=== PATIENT | female | born 1960 | race Two or more races ===

== ENCOUNTER 2016-06-30 16:10 | Emergency (ER) | payer OTHER ==
--- NOTE | ~2016-06-30 | CR58 ---
[facility]. [facility] A Service of [facility] & [facility] RADIOLOGY TEXT RESULTS PATIENT: BRI CLARK LOCATION: SED : 60 UNIT #: [id number] AGE: [address]: Alok Freitas SEX: F ORDER DR: [id number] [place] [id number] E MR#: [id number] Acc #: [id number] NAME: BRI CLARK : 1960 SEX: F STUDY DATE/TIME: 06/30/2016 16:27 UNIT: SED ROOM: STUDY DESCRIPTION: CR Cervical Spine 2 or 3 Views Attending Physician: Alok Freitas P.A.-C. Ordering Physician: Alok Freitas P.A.-C. Primary Care Physician: [facility] MEDICAL IMAGING REPORT This report is preliminary unless electronic signature is present. EXAM Cervical spine series, 3 views, 06/30/2016 HISTORY Neck pain for 2 weeks radiating to left arm with left arm numbness and tingling paresthesias. FINDINGS There is discogenic change with slight 5-6 retrolisthesis but no fracture, prevertebral swelling or acute abnormality is seen. Dictated by... Kevyn Trammell M.D. THIS IS AN ELECTRONICALLY VERIFIED REPORT Kevyn Trammell M.D. at 07/01/2016 5:04 PM TEV/psc TD: 07/01/2016 00:01 JOB #: [id number] MEDICAL IMAGING REPORT Page 1 of 1
--- NOTE | ~2016-06-30 | CR63 ---
[facility]. [facility] A Service of [facility] & [facility] RADIOLOGY TEXT RESULTS PATIENT: BRI CLARK LOCATION: SED : 60 UNIT #: [id number] AGE: [address]: Alok Freitas SEX: F ORDER DR: [id number] [place] [id number] E MR#: [id number] Acc #: [id number] NAME: BRI CLARK : 1960 SEX: F STUDY DATE/TIME: 06/30/2016 16:27 UNIT: SED ROOM: STUDY DESCRIPTION: CR Chest 2 View Attending Physician: Alok Freitas P.A.-C. Ordering Physician: Alok Freitas P.A.-C. Primary Care Physician: [facility] MEDICAL IMAGING REPORT This report is preliminary unless electronic signature is present. EXAM PA and lateral chest two views, 06/30/2016 CLINICAL HISTORY Left arm pain x2 weeks. FINDINGS There is no infiltrate, effusion, pneumothorax or suspicious nodule and the heart size and pulmonary vascularity are normal. There is mild spinal degenerative change but no acute bony abnormality. Dictated by... Kevyn Trammell M.D. THIS IS AN ELECTRONICALLY VERIFIED REPORT Kevyn Trammell M.D. at 07/01/2016 5:04 PM WILLEM/aleshia TD: 07/01/2016 00:03 JOB #: [id number] MEDICAL IMAGING REPORT Page 1 of 1
--- NOTE | ~2016-06-30 | EKG ---
PATIENT: BRI CLARK UNIT #: [id number] Ventricular Rate: 85 BPM Atrial Rate: 85 BPM P-R Interval: 104 ms QRS Duration: 78 ms Q-T Interval: 342 ms QTC Calculation(Bezet): 406 ms P [place]: 36 degrees Calculated R [place]: -3 degrees Calculated T [place]: 18 degrees Diagnosis Line: Sinus rhythm with short RI Diagnosis Line: Poor R wave progression questionable lead position Diagnosis Line: or body habitus Early repolarization Borderline Diagnosis Line: ECG Diagnosis Line: When compared with ECG of 12-DEC-2015 08:57, Diagnosis Line: No significant change was found Diagnosis Line: Confirmed by YVES AYALA MD ([id number]) on 07/01/2016 Diagnosis Line: 8:04:35 PM INTERPRETING MD: JAMIE SIMTH
[~2016-06-30 16:10] MED LIST: AUGMENTIN875 M1 PO; BACTRIM DS TABL1 TA1 PO; CARAFATE1 GM PO; CLEOCIN HCL300 M1 PO; FLONASE 0.05% N16 G1; HUMALOG100 UNIT/2 SUBQ; HYDROCODON-ACE1 EAC9 PO; IBUPROFEN PO; IBUPROFEN800 MG PO; LANTUS100 U/ML SUBQ; LEVEMIR SUBQ; METFORMIN PO; PREDNISONE PO; PRILOSEC PO; PRINIVIL20 M1 PO; PROTONIX PO; TRAZODONE HCL100 MG PO; TRESIBA FL100 UNIT/1; TRESIBA FL100 UNIT/1 SUBQ; TYLENOL #3 PO; VOLTAREN50 MG PO; ZOFRAN ODT4 MG PO; ZOFRAN ODT4 MG SL; ZOFRANODT PO
[2016-06-30 17:23] LABS: BASOPHIL# 0.1 X10e3 (0-0.3); BASOPHIL% 0.6 % (0-2.5); EOSINOPHIL# 0.1 X10e3 (0-0.7); EOSINOPHIL% 0.7 % (0.0-7.0); HEMOGLOBIN 13.8 gm/dL (12.0-16.0); LYMPHOCYTE# 2.3 X10e3 (1.0-3.5); LYMPHOCYTE% 24.3 % (17.0-45.0); MEAN CORPUSCULAR HEMOGLOBIN 31.4 PG (28-34); MEAN CORPUSCULAR HGB CONC 34.5 g/dL (30-36); MEAN PLATELET VOLUME 9.8 FL (6.5-11.5); MONOCYTE% 9.9 % (3.0-12.0); NEUTROPHIL# 6.2 X10e3 (1.5-7.1); NEUTROPHIL% 64.5 % (40-75); PLATELET COUNT 177 X10e3 (140-420); RED BLOOD COUNT 4.39 X10e (3.90-5.30); RED CELL DISTRIBUTION WIDTH 12.7 % (11.0-15.5); WHITE BLOOD COUNT 9.7 X10e3 (4.0-10.5)
[2016-06-30 17:29] LABS: DIFF IND NO
[2016-06-30 17:37] LABS: POC - CKMB <1.0 ng/mL (0.0-7.9); POC - TROPONIN <0.05 ng/mL (<=0.05)
[2016-06-30 17:43] LABS: ALBUMIN SERUM 4.3 g/dL (3.5-5.0); ALKALINE PHOSPHATASE 81 U/L (32-92); ALT (SGPT) 24 U/L (10-40); AST (SGOT) 23 U/L (10-42); BILIRUBIN,TOTAL 0.4 mg/dL (0.2-2.0); BLOOD UREA NITROGEN 22 mg/dL (9-23); CALCIUM SERUM 9.7 mg/dL (8.4-10.2); CARBON DIOXIDE 27 mmol/L (22-31); CHLORIDE 93 mmol/L (100-111); CREATININE SERUM 0.8 mg/dL (0.6-1.4); GLOM FILT RATE Estimated 83.1 mL/min (>60); GLUCOSE FASTING 478 mg/dL (70-110); POTASSIUM 4.1 mmol/L (3.5-5.1); PROTEIN TOTAL SERUM 7.9 g/dL (6.0-8.3); SODIUM 128 mmol/L (135-145)
[2016-06-30 17:46] LABS: BILIRUBIN, DIRECT <0.1 mg/dL (0.0-0.2); BILIRUBIN,INDIRECT 0.3 mg/dL (0.0-0.9)
== END 2016-06-30 19:07 | disposition home or self-care (01) ==
LOC: SED 16:10
PROVIDERS: Physician Assistant
DX: M54.12 Radiculopathy, cervical region (principal); E11.9 Type 2 diabetes mellitus without complications; I10 Essential (primary) hypertension; F17.210 Nicotine dependence, cigarettes, uncomplicated; Z98.51 Tubal ligation status
CPT/HCPCS: 36415; 71020; 72040; 80048; 80076; 82553; 82947; 84484; 85025; 93005; 96361; 96374; 96375; 99284; J1885; J2405

== ENCOUNTER 2016-08-11 10:22 | Emergency (ER) | payer OTHER ==
--- NOTE | ~2016-08-11 | EKG ---
PATIENT: BRI CLARK UNIT #: [id number] Ventricular Rate: 83 BPM Atrial Rate: 83 BPM P-R Interval: 104 ms QRS Duration: 80 ms Q-T Interval: 396 ms QTC Calculation(Bezet): 465 ms P [place]: 63 degrees Calculated R [place]: 17 degrees Calculated T [place]: 21 degrees Diagnosis Line: Sinus rhythm with short IN Diagnosis Line: Possible Left atrial enlargement Diagnosis Line: Borderline ECG Diagnosis Line: When compared with ECG of 30-JUN-2016 16:42, Diagnosis Line: QT has lengthened Diagnosis Line: Confirmed by CATIE BRINK MD ([id number]) on Diagnosis Line: 08/12/2016 8:50:18 AM INTERPRETING MD: KEENA SMITH
[2016-08-11 10:45] LABS: BASOPHIL# 0.1 X10e3 (0-0.3); BASOPHIL% 0.6 % (0-2.5); EOSINOPHIL% 0.3 % (0.0-7.0); HEMATOCRIT 42.3 % (35.0-45.0); HEMOGLOBIN 14.5 gm/dL (12.0-16.0); LYMPHOCYTE# 1.9 X10e3 (1.0-3.5); LYMPHOCYTE% 19.7 % (17.0-45.0); MEAN CELL VOLUME 90.5 FL (83-96); MEAN CORPUSCULAR HEMOGLOBIN 31.1 PG (28-34); MEAN CORPUSCULAR HGB CONC 34.3 g/dL (30-36); MEAN PLATELET VOLUME 10.5 FL (6.5-11.5); MONOCYTE# 1.2 X10e3 (0-1.0); MONOCYTE% 11.9 % (3.0-12.0); NEUTROPHIL# 6.7 X10e3 (1.5-7.1); NEUTROPHIL% 67.5 % (40-75); PLATELET COUNT 194 X10e3 (140-420); RED BLOOD COUNT 4.68 X10e (3.90-5.30); RED CELL DISTRIBUTION WIDTH 13.3 % (11.0-15.5); WHITE BLOOD COUNT 9.9 X10e3 (4.0-10.5)
[2016-08-11 10:54] LABS: DIFF IND NO
[2016-08-11 11:08] LABS: ALBUMIN SERUM 4.9 g/dL (3.5-5.0); BILIRUBIN, DIRECT 0.1 mg/dL (0.0-0.2); BILIRUBIN,INDIRECT 0.5 mg/dL (0.0-0.9); BILIRUBIN,TOTAL 0.6 mg/dL (0.2-2.0); BUN/CREATININE RATIO 22.3; CALCIUM SERUM 9.9 mg/dL (8.4-10.2); CREATININE SERUM 1.3 mg/dL (0.6-1.4); GLOM FILT RATE Estimated 46.2 mL/min (>60); POTASSIUM 3.9 mmol/L (3.5-5.1); PROTEIN TOTAL SERUM 7.8 g/dL (6.0-8.3)
[2016-08-11 11:54] LABS: URINE SOURCE CLEAN CATCH
[2016-08-11 11:55] LABS: POC - CKMB <1.0 ng/mL (0.0-7.9); POC - TROPONIN <0.05 ng/mL (<=0.05)
[2016-08-11 11:58] LABS: URINE APPEARANCE CLOUDY; URINE BLOOD NEG (NEG); URINE COLOR YELLOW; URINE KETONE 1+ (NEG); URINE LEUKOCYTE ESTERASE 2+ (NEG); URINE NITRATE NEG (NEG); URINE PH 5.5 (5-8); URINE PROTEIN 2+ (NEG); URINE SPECIFIC GRAVITY 1.025 (1.003-1.035)
[2016-08-11 12:04] LABS: MICRO INDICATED? YES; URINE BILIRUBIN NEG (NEG); URINE GLUCOSE 50 MG/DL (NORM)
[2016-08-11 12:09] LABS: CULTURE INDICATED? YES; URINE BACTERIA 2+ (NEG); URINE RBC 0-2 /[HPF] (0-2)
[2016-08-11 12:10] LABS: URINE SQUAMOUS EPITHELIAL CELL FEW /[HPF]
[2016-08-11 12:12] LABS: URINE YEAST PRESENT
== END 2016-08-11 13:16 | disposition home or self-care (01) ==
LOC: SED 10:22
PROVIDERS: Emergency Medicine
DX: R11.2 Nausea with vomiting, unspecified (principal); R10.9 Unspecified abdominal pain; R19.7 Diarrhea, unspecified; E11.9 Type 2 diabetes mellitus without complications; I10 Essential (primary) hypertension; Z79.4 Long term (current) use of insulin; Z79.899 Other long term (current) drug therapy; F17.210 Nicotine dependence, cigarettes, uncomplicated
CPT/HCPCS: 36415; 80048; 80076; 81003; 82553; 83690; 84484; 85025; 87086; 93005; 96361; 96374; 96375; 99284; J1885; J2405

== ENCOUNTER 2016-10-14 13:07 | Inpatient (IN) | payer OTHER ==
[~2016-10-14] VITALS: Ht 165.1 cm; Wt 66.0 kg
--- NOTE | ~2016-10-14 | HP ---
Unit #: [id number] #: [id number] Patient: BRI CLARK [id number] [address] [place], [place] [address] [id number] I MR#: [id number] NAME: BRI CLARK ROOM: [facility] Age: 56 Sex: F Admission Date: 10/14/2016 : 1960 Attending Physician: Elinor Dunbar M.D. Primary Care Physician: [facility] HISTORY AND PHYSICAL CHIEF COMPLAINT Nausea and vomiting. HISTORY OF PRESENT ILLNESS The patient is a 56-year-old female with a history of a diabetes diagnosed three years ago, on Humalog insulin, brought to the emergency room complaining of the nausea and vomiting that started Wednesday night. The patient stated the patient's sugars started going up since Wednesday. The sugar was 150. The patient tried to take some crackers; however, she could not hold it down and then she started throwing up. The patient presented to the [facility] earlier today with DKA with sugars of 803 and acetone of 20. The patient is being admitted for the above reasons. The patient received the IV fluids and then started on the insulin drip and is being admitted for the above reasons. The patient stated the patient follows with Dr. Best at [facility] and is in the process of getting the insulin pump for the uncontrolled sugars. The patient denies any chest pain and complains of the muscle tenderness secondary to the continuous vomiting. PAST MEDICAL HISTORY 1. History of hypertension. 2. Diabetes with insulin use. PAST SURGICAL HISTORY Tubal ligation. HOME MEDICATIONS The patient is on Humalog, trazodone, lisinopril, Tresiba (insulin degludec) and Zofran and Bentyl. ALLERGIES No known drug allergies. SOCIAL HISTORY Smokes half a pack per day and drinks usually beers, three to four daily, and denies any illicit drug abuse. FAMILY HISTORY Positive for diabetes. REVIEW OF SYMPTOMS Positive for nausea and vomiting and the chest muscle soreness secondary to the vomiting and denies any fever, denies any chills, denies any chest Unit #: [id number] #: [id number] Patient: CLARK,BRI pain, denies any focal weakness. Other systems have been reviewed and are negative. PHYSICAL EXAMINATION GENERAL APPEARANCE: On examination the patient is lying on a bed not in acute distress. VITAL SIGNS: Temperature 98.4, pulse 115, respiratory rate 18, blood pressure 93/69, sating 100% at room air. HEENT: Head atraumatic and normocephalic. Pupils equal, round and reacting to light and accommodation. Dry mucous membrane. NECK: Supple. LUNGS: Decreased air entry at the bases. HEART: Regular rhythm, tachycardic. ABDOMEN: Soft, positive bowel sounds. EXTREMITIES: No cyanosis. No clubbing. NEUROLOGIC: Alert, awake, oriented. No gross focal motor deficit. DIAGNOSTIC STUDIES LABORATORY DATA: WBC 8.7, hemoglobin 13.9, hematocrit 41.5, platelets 190 and UA shows 2+ ketones, troponin less than 0.05, sodium 130, potassium 5, chloride 91, bicarb 22, glucose 803, BUN 47, creatinine 1.3, calcium 10.3, alkaline phosphatase 106, total protein 8.6, acetone serum 20, glucose 444. Sugar is down to 275. IMAGING: Chest x-ray shows no acute cardiopulmonary findings. ASSESSMENT 1. Diabetic ketoacidosis. 2. Hyponatremia. 3. Nausea and vomiting. PLAN Plan to admit the patient to the inpatient, ICU. Patient was started on IV fluid boluses. Continue with the DKA protocol and continue with the Lantus. Continue with the insulin dip and will have the endocrine consult and close the gap and replace the electrolytes and further recommendations will follow as more lab results are available. Dictated by Dariela Rodriguez/alondra TD: 10/14/2016 21:27 JOB #: [id number] Unit #: [id number] #: [id number] Patient: BRI CLARK HISTORY AND PHYSICAL Page 1 of 1 X ELINOR DUNBAR MD X HISTORY AND PHYSICAL
--- NOTE | ~2016-10-14 | A ---
[facility] Nutrition Therapy DATE: 10/15/16 Patient: BRI CLARK Physician: TORSTEN Address: [address] Room/Bed: [address], Zip: [place] [address] Admit Date: 10/14/16 Date of : [birth year] Height: 5 5 Weight: 145 66 NUTRITIONAL ASSESSMENT: REASON: DKA 56 y/o female admitted for DKA PMH: HTN, T2DM Anthropometrics: ht: 5'5" wt: 145# (66 kg) BMI 20 Labs: GLU 125, Accuchecks 72-162, Creat 0.5, Phos 1.4, Lip 14 -Glu 803 at admission Meds: Levemir, NovoLOG, zofran, NaCl, lovenox I/O & Bowel function: 2559/850. NM 10/11 Skin Integrity: Scar- LFA. No edema. Diet: Consistent Carbohydrate diet Assessment: Chart reviewed, events noted. Pt in ICU for DKA. Pt was NPO, diet was just advanced to CCD. RD internal consultant visited pt at bedside. Pt reports her DKA is related to her picking up her insulin a day late and not taking it. Pt reports that she has a generally healthy diet at home, drinking mostly water and some juice. Pt reports she will be getting an insulin pump soon to help with her diabetes management. RD internal consultant provided written and verbal diet education on carbohydrate counting and T2DM nutrition therapy. Pt had no questions at this time. RD will continue to follow. Dx: Impaired glucose utilization r/t lifestyle, access to medication AEB Glu 803 on admission, DKA. Intervention: 1. CCD 2. Diet education Monitoring, Evaluation and Goals: 1. Intake; consume/tolerate >50% of all meals 2. Labs; Glu, electrolytes Recommendations: 1. Continue consistent carbohydrate diet and encourage adequate PO intake. 2. Follow diet education given to improve diet and consistent carbohydrate intake. [facility] Nutrition Therapy DATE: 10/15/16 Patient: BRI CLARK Physician: TORSTEN Address: [address] Room/Bed: [address], Zip: [place] [address] Admit Date: 10/14/16 Date of : [birth year] Height: 5 5 Weight: 145 66 3. Obtain HgbA1c to assess diabetes management. RD will f/u per protocol as pt is at mild/moderate nutritional risk. Respectfully, Carolyn Guerrero, Roller Mill Operator Germaine Molina RD, LD [facility] cc: client file
--- NOTE | ~2016-10-14 | CO ---
Unit #: [id number] #: [id number] Patient: BRI CLARK [id number] [address] [place], [place] [address] [id number] I MR#: [id number] NAME: BRI CLARK ROOM: 222 Age: 56 Sex: F Admission Date: 10/14/2016 : 1960 Attending Physician: Pranav Cronin M.D. Primary Care Physician: Sivan [facility] Consultation Date: 10/15/2016 CONSULTATION REPORT HISTORY OF PRESENT ILLNESS This is a 56-year-old female with history of diabetes mellitus diagnosed 3 years ago. She is insulin dependent. Most likely she has type 1 diabetes mellitus. She reports she missed her dose of Tresiba. The next day she started having nausea, vomiting, and her blood sugars were very high. In the emergency room she was found to be in mild diabetic ketoacidosis with acetone of 20 and positive ketones. She was started on insulin drip, started on IV fluids and insulin drip. Her blood sugar significantly improved. Her insulin drip was discontinued right now. I have been asked to see the patient for further management. PAST MEDICAL HISTORY 1. Hypertension. 2. Diabetes mellitus type 1. PAST SURGICAL HISTORY Tubal ligation. HOME MEDICATIONS Humalog with meals 6 units, trazodone, lisinopril, Tresiba 34 units daily at bedtime. ALLERGIES None. SOCIAL HISTORY Smokes 1/2 pack per day. Drinks usually beer 3-4 daily. Denies any illicit drugs. FAMILY HISTORY Positive for diabetes. REVIEW OF SYSTEMS Reported nausea and vomiting; at this time the patient denies. A 12-point review of systems was completed. Denies any nausea, vomiting or abdominal pain. PHYSICAL EXAMINATION GENERAL: She is comfortable. No acute distress. VITAL SIGNS: Vitals are stable; afebrile. Blood pressure 128/80, temperature 98.2, weighs 66 kg. HEENT: EOMI. Pupils equally react to light. NECK: Supple. No thyromegaly noted. Unit #: [id number] #: [id number] Patient: BRI CLARK CHEST: Good air entry. CVS: Regular rhythm. No murmurs. ABDOMEN: Soft. Nontender. Bowel sounds positive. EXTREMITIES: No edema or ulcers are noted. DIAGNOSTIC STUDIES LABORATORY: Labs were reviewed. Admission glucose was 803, creatinine 1.3, sodium 130, potassium 5, chloride 91, CO2 22. ASSESSMENT/PLAN Diabetic ketoacidosis. Her blood sugar is significantly improved. Her ketosis has improved significantly. The patient has already been started on Levemir. Received 30 units daily and insulin drip and discontinued. Will change Levemir to 20 units in the morning. Change supplemental insulin to low-dose (1) continue 6 units with meals. Limit carbs to 60 grams with each meal. Will change IV fluids to normal saline. Thanks again for the consultation. Dictated by... Dariela Rosado/gallo TD: 10/16/2016 10:23 JOB #: [id number] CONSULTATION REPORT Page 1 of 1 X Benedicto Frias MD X CONSULTATION REPORT
--- NOTE | ~2016-10-14 | EKG ---
PATIENT: BRI CLARK UNIT #: [id number] Ventricular Rate: 80 BPM Atrial Rate: 80 BPM P-R Interval: 108 ms QRS Duration: 84 ms Q-T Interval: 388 ms QTC Calculation(Bezet): 447 ms P [place]: 69 degrees Calculated R [place]: 5 degrees Calculated T [place]: 34 degrees Diagnosis Line: Sinus rhythm with sinus arrhythmia with short [place] Diagnosis Line: Nonspecific ST abnormality Diagnosis Line: Abnormal ECG Diagnosis Line: When compared with ECG of 11-AUG-2016 11:26, Diagnosis Line: No significant change was found Diagnosis Line: Confirmed by CATIE BRINK MD ([id number]) on Diagnosis Line: 10/15/2016 12:34:12 AM INTERPRETING MD: KEENA SMITH
--- NOTE | ~2016-10-14 | EKG ---
PATIENT: BRI CLARK UNIT #: [id number] Ventricular Rate: 89 BPM Atrial Rate: 89 BPM P-R Interval: 110 ms QRS Duration: 80 ms Q-T Interval: 350 ms QTC Calculation(Bezet): 425 ms P [place]: 69 degrees Calculated R [place]: 2 degrees Calculated T [place]: 5 degrees Diagnosis Line: Sinus rhythm with short [place] Diagnosis Line: Possible Left atrial enlargement Diagnosis Line: Borderline ECG Diagnosis Line: When compared with ECG of 11-AUG-2016 11:26, Diagnosis Line: Nonspecific T wave abnormality now evident in Diagnosis Line: Lateral leads Diagnosis Line: Confirmed by ANNITA KEITA MD ([id number]) on Diagnosis Line: 10/15/2016 3:52:17 PM INTERPRETING MD: EDMAR
--- NOTE | ~2016-10-14 | CR63 ---
[facility] A Service of [facility] & [facility] RADIOLOGY TEXT RESULTS PATIENT: BRI CLARK LOCATION: [facility] 222-01 : [birth year] UNIT #: [id number] AGE: [address]: Pranav Cronin MD SEX: F ORDER DR: [id number] [place] [id number] [place], [place] [address] [id number] I MR#: [id number] Acc #: [id number] NAME: BRI CLARK : 1960 SEX: F STUDY DATE/TIME: 10/15/2016 17:18 UNIT: [facility] ROOM: 222 STUDY DESCRIPTION: CR Chest 2 View Attending Physician: Pranav Cronin M.D. Ordering Physician: Pranav Cronin M.D. Primary Care Physician: [facility] MEDICAL IMAGING REPORT This report is preliminary unless electronic signature is present EXAM Two-view chest INDICATIONS Hyperglycemia. Nausea and vomiting. 3-day duration. FINDINGS PA and lateral views of the chest compared to 10/14/2016. Heart mediastinal contours are normal. Lungs are clear. No pleural effusion. IMPRESSION No acute cardiopulmonary findings Dictated by... Fabricio Baxter M.D. THIS IS AN ELECTRONICALLY VERIFIED REPORT Fabricio Baxter M.D. at 10/15/2016 9:33 PM CARLOS/ajit TD: 10/15/2016 21:00 JOB #: [id number] MEDICAL IMAGING REPORT Page 1 of 1 COPY
--- NOTE | ~2016-10-14 | CR72 ---
[facility] A Service [facility] RADIOLOGY TEXT RESULTS PATIENT: BRI CLARK LOCATION: [facility] : 60 UNIT #: [id number] AGE: [address]: Pranav Cronin MD SEX: F ORDER DR: [id number] [place] [id number] E MR#: [id number] Acc #: [id number] NAME: BRI CLARK : 1960 SEX: F STUDY DATE/TIME: 10/14/2016 15:06 UNIT: SED ROOM: STUDY DESCRIPTION: CR Chest Single View Portable Attending Physician: Joaquin Haynes M.D. Ordering Physician: Joaquin Haynes M.D. Primary Care Physician: [facility] MEDICAL IMAGING REPORT This report is preliminary unless electronic signature is present. EXAM AP portable chest DATE 10/14/2016 HISTORY Shortness of breath since 10/12/2016 with vomiting. History of smoking. COMPARISON PA and lateral chest radiographs 06/30/2016 FINDINGS Benign appearing nipple shadows are present bilaterally. No acute airspace disease. Heart size within normal limits. Degenerative endplate plate spurring within the thoracic spine. No acute osseous abnormality. No pleural effusion or pneumothorax. IMPRESSION No acute cardiopulmonary findings. Dictated by... Gila Shultz M.D. THIS IS AN ELECTRONICALLY VERIFIED REPORT Gila Shultz M.D. at 10/16/2016 9:35 PM [facility]/to TD: 10/14/2016 17:28 JOB #: [id number] MEDICAL IMAGING REPORT [facility] A Service [facility] RADIOLOGY TEXT RESULTS PATIENT: BRI CLARK LOCATION: [facility] : [birth year] UNIT #: [id number] AGE: [address]: Pranav Cronin MD SEX: F ORDER DR: Page 1 of 1
--- NOTE | ~2016-10-14 | DS ---
Unit #: [id number] #: [id number] Patient: BRI CLARK 340034 [address] [address] [id number] I MR#: [id number] NAME: BRI CLARK ROOM: 222 Age: 56 Sex: F Admission Date: 10/14/2016 : 1960 Discharge Date: 10/16/2016 Attending Physician: Pranav Cronin M.D. [facility] SUMMARY EDUCATIONAL RESOURCE COORDINATOR Dr. Frias with endocrinology. PRIMARY DIAGNOSIS Diabetic ketoacidosis. SECONDARY DIAGNOSES 1. Hyponatremia, resolved. 2. Vomiting, likely viral gastroenteritis, resolved. 3. Hypophosphatemia. 4. Anemia, mild. 5. Hypertension, controlled. 6. Cough, nonspecific without evidence of pneumonia on imaging, labs, or vitals. HOSPITAL COURSE The patient was admitted to the hospital with diabetic ketoacidosis, was admitted to the ICU and started on an insulin drip. Electrolytes were replaced as needed including for severe hypophosphatemia which was improving markedly at the time of discharge. There did not appear to be any acute bacterial infection on workup. Patient was able to be transitioned to subcutaneous insulin on the morning of the and blood sugars remained under good control. On the morning of the , the patient was tolerating a diet without any vomiting and is generally feeling back to normal. DISCHARGE DISPOSITION To home. DISCHARGE STATUS Stable. DISCHARGE DIET Diabetic low-sodium diet. DISCHARGE ACTIVITY Ad mandie. DISCHARGE FOLLOWUP With her PCP in one week. DISCHARGE MEDICATIONS 1. Trazodone 100 mg p.o. nightly p.r.n. insomnia. 2. Zofran resume home dose one tablet p.o. t.i.d. p.r.n. nausea. Unit #: [id number] #: [id number] Patient: BRI CLARK 3. Lisinopril 20 mg p.o. daily. 4. Humalog 6 units subcutaneous t.i.d. 5. Tresiba Flextouch 15 units on the evening of October 16, 2016, then 25 units subcutaneous nightly starting October 17, 2016. 6. Bentyl resume home dose one tablet p.o. q.i.dTiago p.r.n. abdominal cramping. Dictated by... Dariela Mccray/devante TD: 10/17/2016 10:04 JOB #: [id number] DISCHARGE SUMMARY Page 1 of 1 X Pranav Cronin MD X DISCHARGE SUMMARY
[2016-10-14] MEDS ORDERED: ZOFRAN PO (13:09)
[2016-10-14] MEDS ORDERED: BENTYL PO (13:09)
[2016-10-14 14:04] LABS: URINE SOURCE CLEAN CATCH
[2016-10-14 14:07] LABS: BASOPHIL% 0.4 % (0-2.5); HEMATOCRIT 41.5 % (35.0-45.0); HEMOGLOBIN 13.9 gm/dL (12.0-16.0); LYMPHOCYTE# 0.9 X10e3 (1.0-3.5); LYMPHOCYTE% 10.5 % (17.0-45.0); MEAN CELL VOLUME 95.7 FL (83-96); MEAN CORPUSCULAR HEMOGLOBIN 32.1 PG (28-34); MEAN CORPUSCULAR HGB CONC 33.5 g/dL (30-36); MEAN PLATELET VOLUME 10.3 FL (6.5-11.5); MONOCYTE# 0.8 X10e3 (0-1.0); MONOCYTE% 8.7 % (3.0-12.0); NEUTROPHIL% 80.4 % (40-75); PLATELET COUNT 190 X10e3 (140-420); RED BLOOD COUNT 4.34 X10e (3.90-5.30); WHITE BLOOD COUNT 8.7 X10e3 (4.0-10.5)
[2016-10-14 14:08] LABS: URINE APPEARANCE CLEAR; URINE BILIRUBIN NEG (NEG); URINE BLOOD NEG (NEG); URINE COLOR YELLOW; URINE GLUCOSE 300 MG/DL (NORM); URINE LEUKOCYTE ESTERASE NEG (NEG); URINE NITRATE NEG (NEG); URINE PROTEIN NEG (NEG); URINE SPECIFIC GRAVITY <=1.005 (1.003-1.035); URINE UROBILINOGEN 0.2 MG/DL (NORM)
[2016-10-14 14:10] LABS: DIFF IND NO
[2016-10-14 14:16] LABS: MICRO INDICATED? NO; URINE KETONE 2+ (NEG)
[2016-10-14 14:43] LABS: POC - CKMB <1.0 ng/mL (0.0-7.9); POC - TROPONIN <0.05 ng/mL (<=0.05)
[2016-10-14 14:51] LABS: ALBUMIN SERUM 4.6 g/dL (3.5-5.0); ALKALINE PHOSPHATASE 106 U/L (32-92); ALT (SGPT) 29 U/L (10-40); AMYLASE 12 U/L (0-46); AST (SGOT) 14 U/L (10-42); BILIRUBIN,TOTAL 0.9 mg/dL (0.2-2.0); BLOOD UREA NITROGEN 47 mg/dL (9-23); BUN/CREATININE RATIO 36.15; CALCIUM SERUM 10.3 mg/dL (8.4-10.2); CARBON DIOXIDE 22 mmol/L (22-31); CHLORIDE 91 mmol/L (100-111); CREATININE SERUM 1.3 mg/dL (0.6-1.4); GLOM FILT RATE Estimated 45.8 mL/min (>60); LIPASE 22 U/L (22-51); PROTEIN TOTAL SERUM 8.6 g/dL (6.0-8.3); SODIUM 130 mmol/L (135-145)
[2016-10-14 14:52] LABS: BILIRUBIN, DIRECT <0.1 mg/dL (0.0-0.2); BILIRUBIN,INDIRECT 0.8 mg/dL (0.0-0.9); GLUCOSE FASTING 803 mg/dL (70-110)
[2016-10-14 19:53] LABS: ARTERIAL BLD GAS O2 SATURATION 93.5 % (90.0-100.0); ARTERIAL BLOOD GAS CARBOXY HB 1.6 %sat (0.0-9.0); ARTERIAL BLOOD GAS HCO3 26.5 mmol/L; ARTERIAL BLOOD GAS MET HB 1.2 %sat (0.0-2.0); ARTERIAL BLOOD GAS PCO2 39.6 mmHg (35.0-45.0); ARTERIAL BLOOD GAS pH 7.433 (7.350-7.450)
[2016-10-14 19:54] LABS: ARTERIAL BLOOD GAS ALLEN TEST NORMAL; ARTERIAL BLOOD GAS ART SITE LEFT RADIAL; ARTERIAL BLOOD GAS DELIVERY ROOM AIR; ARTERIAL BLOOD GAS PO2 79.2 mmHg (80.0-100); ARTERIAL DRAW? YES
[2016-10-14 20:37] LABS: URINE APPEARANCE CLEAR; URINE BILIRUBIN NEG (NEG); URINE BLOOD NEG (NEG); URINE COLOR YELLOW; URINE GLUCOSE >1000 MG/DL (NEG); URINE KETONE 2+ (NEG); URINE LEUKOCYTE ESTERASE 1+ (NEG); URINE NITRATE NEG (NEG); URINE PROTEIN NEG (NEG); URINE SPECIFIC GRAVITY 1.033 (1.003-1.035); URINE UROBILINOGEN 0.2 MG/DL (NEG)
[2016-10-14 20:40] LABS: BETA HYDROXYBUTYRATE 1.87 MMOL/L (0.02-0.27); BUN/CREATININE RATIO 46.66; CALCIUM SERUM 9.2 mg/dL (8.4-10.2); CREATININE SERUM 0.6 mg/dL (0.6-1.4); GLOM FILT RATE Estimated 101.9 mL/min (>60); POTASSIUM 4.1 mmol/L (3.5-5.1)
[2016-10-15 02:13] LABS: CALCIUM SERUM 8.6 mg/dL (8.4-10.2); CREATININE SERUM 0.5 mg/dL (0.6-1.4); GLOM FILT RATE Estimated 108.2 mL/min (>60); POTASSIUM 3.1 mmol/L (3.5-5.1)
[2016-10-15 05:56] LABS: BASOPHIL% 0.5 % (0-2.5); DIFF IND NO; EOSINOPHIL# 0.1 X10e3 (0-0.7); EOSINOPHIL% 1.5 % (0.0-7.0); HEMATOCRIT 34.1 % (35.0-45.0); HEMOGLOBIN 11.7 gm/dL (12.0-16.0); LYMPHOCYTE% 26.7 % (17.0-45.0); MEAN CORPUSCULAR HGB CONC 34.4 g/dL (30-36); MEAN PLATELET VOLUME 9.6 FL (6.5-11.5); MONOCYTE# 0.9 X10e3 (0-1.0); MONOCYTE% 11.7 % (3.0-12.0); NEUTROPHIL# 4.5 X10e3 (1.5-7.1); NEUTROPHIL% 59.6 % (40-75); PLATELET COUNT 148 X10e3 (140-420); RED BLOOD COUNT 3.67 X10e (3.90-5.30); RED CELL DISTRIBUTION WIDTH 13.7 % (11.0-15.5); WHITE BLOOD COUNT 7.5 X10e3 (4.0-10.5)
[2016-10-15 06:27] LABS: CALCIUM SERUM 8.5 mg/dL (8.4-10.2); CREATININE SERUM 0.5 mg/dL (0.6-1.4); GLOM FILT RATE Estimated 108.2 mL/min (>60); POTASSIUM 3.8 mmol/L (3.5-5.1)
[2016-10-15 18:39] LABS: BUN/CREATININE RATIO 27.5; CALCIUM SERUM 8.4 mg/dL (8.4-10.2); CREATININE SERUM 0.4 mg/dL (0.6-1.4); GLOM FILT RATE Estimated 116.5 mL/min (>60); POTASSIUM 3.8 mmol/L (3.5-5.1)
[2016-10-16 05:18] LABS: BASOPHIL% 0.6 % (0-2.5); EOSINOPHIL# 0.1 X10e3 (0-0.7); EOSINOPHIL% 1.6 % (0.0-7.0); LYMPHOCYTE# 2.3 X10e3 (1.0-3.5); LYMPHOCYTE% 41.1 % (17.0-45.0); MEAN CELL VOLUME 92.4 FL (83-96); MEAN CORPUSCULAR HEMOGLOBIN 31.7 PG (28-34); MEAN CORPUSCULAR HGB CONC 34.3 g/dL (30-36); MEAN PLATELET VOLUME 9.2 FL (6.5-11.5); MONOCYTE# 0.5 X10e3 (0-1.0); MONOCYTE% 8.4 % (3.0-12.0); NEUTROPHIL# 2.7 X10e3 (1.5-7.1); NEUTROPHIL% 48.3 % (40-75); PLATELET COUNT 137 X10e3 (140-420); RED BLOOD COUNT 3.79 X10e (3.90-5.30); RED CELL DISTRIBUTION WIDTH 13.8 % (11.0-15.5); WHITE BLOOD COUNT 5.7 X10e3 (4.0-10.5)
[2016-10-16 05:22] LABS: DIFF IND NO
[2016-10-16 06:04] LABS: CALCIUM SERUM 8.4 mg/dL (8.4-10.2); CREATININE SERUM 0.4 mg/dL (0.6-1.4); GLOM FILT RATE Estimated 116.5 mL/min (>60); PHOSPHOROUS 2.4 mg/dL (2.5-4.6); POTASSIUM 3.6 mmol/L (3.5-5.1)
== END 2016-10-16 13:21 | disposition home or self-care (01) | DRG 638 ==
LOC: SED 13:07 → CED 13:36 → SED 17:45 → CEDOF 18:47 → CED 18:47 → CICCU3 18:47 → CEDOF 19:03 → C2A 19:32 → CICCU3 19:32 → C2A 10-15 17:30 → UNDODEPER 10-15 17:45 → C2A 10-16 13:21
PROVIDERS: Emergency Medicine; Internal Medicine
DX: E13.10 Other specified diabetes mellitus with ketoacidosis without coma (principal); E87.1 Hypo-osmolality and hyponatremia; E83.39 Other disorders of phosphorus metabolism; I10 Essential (primary) hypertension; A08.4 Viral intestinal infection, unspecified; D64.9 Anemia, unspecified; Z79.4 Long term (current) use of insulin; F17.210 Nicotine dependence, cigarettes, uncomplicated; Z83.3 Family history of diabetes mellitus
CPT/HCPCS: 36415; 36600; 71010; 71020; 80048; 80076; 81003; 82010; 82150; 82553; 82803; 82947; 83036; 83690; 83735; 84100; 84484; 85025; 87040; 93005; 96361; 96374; 96375; 99285; J1170; J1650; J1815; J2405; J3475; J3480